=== PATIENT | male | born 1965 | race Caucasian/White ===

== ENCOUNTER 2018-03-26 10:03 | Emergency (ER) | payer SELFPAY ==
[2018-03-26 10:28] VITALS: BP 124/79
[2018-03-26] MEDS ORDERED: Fluorescein Sodium TOPICAL* 1 MG TEST STRIP ONE (10:30)
[2018-03-26] MEDS ORDERED: Tetracaine 0.5% OPTH.SOL 4 ML* 1 DROP BTL ONE (10:31)
[2018-03-26] MEDS ORDERED: BSS OPTH.SOL* BTL ONE (10:31)
[2018-03-26] MEDS ORDERED: NS 0.9% 1000 ML* 1,000 ML ONE (10:42)
--- NOTE | 2018-03-26 10:43 | UC ---
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 His removed a piece of metal but feels like for over two days FB sensation with constant tearing. No change in vision Usually wears glasses but he doesnt have it with him now. Tetanus UTD - History of Current Complaint Chief Complaint: UCEye Stated Complaint: FOREIGN BODY IN EYE Time Seen by Provider: 03/26/18 10:28 Onset/Duration: Sudden Onset Timing: Constant Pain Intensity: 6 Location of Injury: Conjunctiva Character: Sharp Aggravating Factor(s): Light Alleviating Factor(s): Nothing Associated Signs And Symptoms: Positive: Drainage (Clear). Negative: Vision Impairment Bilateral, Vision Impairment Right, Vision Impairment Left, Fever, Swelling - Allergies/Home Medications Allergies/Adverse Reactions: Allergies Allergy/AdvReac Type Severity Reaction Status Date / Time No Known Allergies Allergy Verified 03/26/18 10:28 PMH/Surg Hx/FS Hx/Imm Hx Previously Healthy: Yes - Surgical History Surgical History: None - Social History Alcohol Use: Rare Substance Use Type: Marijuana Substance Use Comment - Amount & Last Used: monthly Smoking Status (MU): Light Every Day Tobacco Smoker Type: Cigarettes Review of Systems All Other Systems Reviewed And Are Negative: Yes Constitutional: Positive: Negative Skin: Positive: Negative Eyes: Positive: Eye Redness ENT: Positive: Negative Respiratory: Positive: Negative Cardiovascular: Positive: Negative Gastrointestinal: Positive: Negative Genitourinary: Positive: Negative Motor: Positive: Negative Neurovascular: Positive: Negative Musculoskeletal: Positive: Negative Neurological: Positive: Negative Psychological: Positive: Negative Is Patient Immunocompromised?: No Physical Exam Triage Information Reviewed: Yes Appearance: Well-Appearing, No Pain Distress, Well-Nourished Vital Signs: Initial Vital Signs Temp 36.6 C 03/26/18 10:22 Pulse 82 03/26/18 10:22 Resp 18 03/26/18 10:22 BP 124/79 03/26/18 10:22 Pulse Ox 99 03/26/18 10:22 Vital Signs Reviewed: Yes Eyes: Positive: Other: - left conjuctival redness with metal body FB seen at 12 oclock over iris part EOMI RAMON Visual acuity done at triage (does not have his glasses with him) Respiratory Exam: Normal Cardiovascular Exam: Normal Abdominal Exam: Normal Eye Complaint Course/Dx - Course Course Of Treatment: George lens with 1 L of lactated ringer. Patient tolerated only 500ml. However, metal still not removed after irrigation. So tetracaine drop was put in his left eye and able to remove the metal with 30 kyler needle. Corneal rust ring noticed on exam. Discussed with [facility] office and he will be seen in the office in two days. They agreed with the plan. Will discharge with polytrim to instill 1 drop in affected eye(s ) every 3 hours for 7 days. Meds dispensed here in the UC. - Differential Dx/Diagnosis Differential Diagnosis/HQI/PQRI: Corneal Abrasion, Foreign Body, Penetrating Injury Provider Diagnosis: Foreign body of eye, external, left Discharge - Sign-Out/Discharge Documenting (check all that apply): Patient Departure All imaging exams completed and their final reports reviewed: Yes - Discharge Plan Condition: Good Disposition: HOME Patient Education Materials: Eye Foreign Body (ED) Referrals: No Primary Care Phys,NOPCP [Primary Care Provider] - - Billing Disposition and Condition Condition: GOOD Disposition: Home
[2018-03-26] MEDS ORDERED: Tetracaine 0.5% OPTH.SOL 15ML* BTL LEFT EYE ONE (11:02)
[2018-03-26] MEDS ORDERED: Polymyx/Trimethoprim OPTH* 10 ML BTL LEFT EYE ONE (11:55)
[2018-03-26] MEDS ORDERED: Polymyx/Trimethoprim OPTH* 10 ML BTL LEFT EYE SCH (12:00)
== END 2018-03-26 12:11 | disposition home or self-care (01) ==
LOC: UCEAST 10:03
DX: T15.02XA Foreign body in cornea, left eye, initial encounter (principal); X58.XXXA Exposure to other specified factors, initial encounter; Y92.9 Unspecified place or not applicable; Y99.0 Civilian activity done for income or pay; F17.210 Nicotine dependence, cigarettes, uncomplicated
CPT/HCPCS: 65220; 99203; A9270-GY; G0463